=== PATIENT | male | born 1960 | race Caucasian/White ===

== ENCOUNTER → 2016-06-06 | Outpatient (REF) | payer MEDICARE, MEDICAID | LOC: M SFHCPLAZ 15:36 | PROVIDERS: ATTEND Family Medicine | DX: R35.0 Frequency of micturition (principal) | CPT/HCPCS: G0103; G0463 ==

== ENCOUNTER 2016-07-24 12:10 | Emergency (ER) | payer MEDICARE, MEDICAID ==
--- NOTE | 2016-07-24 14:16 | EDDOCDS ---
Physician Documentation [facility] Name: Donn Yusuf Age: 55 yrs Sex: Male : 1960 Arrival Date: 07/24/2016 Time: 12:10 Bed PR Private MD: Aayush Lane M. Disposition: 07/24/16 14:04 Discharged to Home/Self Care. Impression: Acute maxillary sinusitis. - Condition is Stable. - Discharge Instructions: Sinusitis, Adult. - Prescriptions for Augmentin 875- 125 mg Oral Tablet - take 1 tablet by ORAL route every 12 hours for 10 days; 20 tablet. Ibuprofen 800 mg Oral Tablet - take 1 tablet by ORAL route every 8 hours As needed take with food; 30 tablet. Mucinex 600 mg - take 1 tablet by ORAL route 2 times per day; 30 tablet. benzonatate 200 mg Oral Capsule - take 1 capsule by ORAL route 3 times per day As needed; 30 capsule. Fluticasone 50 mcg/actuation Nasal [place], Suspension - inhale 1 spray by INTRANASAL route 2 times per day; 1 bottle. - Medication Reconciliation, Local Pharmacy Hours form. - Follow up: Aayush Lane; When: 4 - 5 days; Reason: Recheck today's complaints. Follow up: Emergency Department; When: As needed; Reason: Fever > 102F, Trouble breathing, Worsening of conditions. - Problem is new. - Symptoms are unchanged. Historical: - Allergies: no known allergies; - Home Meds: 1. Ambien 10 mg Oral tab 1 tab once daily 2. diazepam 10 mg Oral tab prn 3. trazodone 300 mg Oral tab HS - PMHx: Hypertension; Anxiety; - PSHx: Cholecystectomy; - Social history: Smoking status: Patient states was never smoker of tobacco. No barriers to communication noted, The patient speaks fluent Macedonian, Speaks appropriately for age. - Family history: Not pertinent. - : The pt / caregiver states he / she is not on anticoagulants. Home medication list is obtained from the patient, [employer] import data. - Exposure Risk Screening:: None identified. Vital Signs: 07/24 12:11 BP 179 / 94; Pulse 80; Resp 17; Temp 99.4(O); Pulse Ox 98% on R/A; Weight 120.2 kg / lr2 265 lbs (R); Height 6 ft. 1 in. (185.42 cm) (R); Pain 9/10; 14:14 BP 148 / 84; Pulse 74; Resp 20; Temp 98.4(T); Pulse Ox 94% on R/A; Pain 0/10; dsf 12:11 Body Mass Index 34.96 (120.20 kg, 185.42 cm) lr2 MDM: 12:55 Strep Screen, Nursing ordered. ar2 12:55 Obtain sample by nasopharyngeal swab ordered. ar2 12:56 -Influenza A&B Rapid Antigen - Nose Ordered. EDMS 12:56 Chest, 2 View (pa\E\lat) Ordered. EDMS 13:01 Financial registration complete. lg 13:07 GATS (NEGATIVE STREP SCREEN) Ordered. EDMS 13:41 [facility] Payment Agreement was scanned into [employer] and attached to record. lg 13:54 -Influenza A&B Rapid Antigen - Nose Reviewed. ar2 Signatures: Dispatcher [employer] EDMS Ezra Solorzano, Delmar Reg lg Jacinto Macias, ARNIEC PA-C ar2 Angela GaitanRN RN Marjorie PhillipsRN RN africa The chart was reviewed and I authenticate all verbal orders and agree with the evaluation and treatment provided.Attachments: 13:41 [facility] Payment Agreement lg MTDD
--- NOTE | 2016-07-24 14:16 | EDDOCDS ---
Nurse's Notes [facility] Name: Donn Yusuf Age: 55 yrs Sex: Male : 1960 Arrival Date: 07/24/2016 Time: 12:10 Bed PR Private MD: Aayush Lane M. Diagnosis: Acute maxillary sinusitis Presentation: 07/24 12:26 Presenting complaint: Patient states: "I am sick." Reports cold symptoms x 6 weeks. ead Reports worsening of symptoms 5 days ago with body aches. Adult Sepsis Screening: The patient does not have new or worsening altered mentation. Patient's respiratory rate is less than 22. Systolic blood pressure is greater than 100. Patient has a qSOFA score of 0- Negative Sepsis Screen. Suicide/Homicide risk assessment- the patient denies having any suicidal and/or homicidal ideations and does not present with any other emotional, behavioral or mental health complaints. Status: Patient is not a convention services manager or dependent. Transition of care: patient was not received from another setting of care. 12:26 Acuity: KATHRYN Level 4 ead 12:26 Method Of Arrival: Walkin/Carried/Asstd ead Triage Assessment: 12:28 General: Appears in no apparent distress, well nourished, well groomed, Behavior is ead appropriate for age, cooperative. Pain: Location: face and left ear Pain currently is 10 out of 10 on a pain scale. HIV screening NA for this visit Offered previously. Neurological: Level of Consciousness is awake, alert, obeys commands, Oriented to person, place, time. EENT: Reports pain in left ear, mouth, chin and left jaw. Respiratory: Airway is patent Respiratory effort is even, unlabored, Reports cough that is productive. Derm: Skin is pink, warm & dry. Musculoskeletal: Reports all over body aches. Historical: - Allergies: no known allergies; - Home Meds: 1. Ambien 10 mg Oral tab 1 tab once daily 2. diazepam 10 mg Oral tab prn 3. trazodone 300 mg Oral tab HS - PMHx: Hypertension; Anxiety; - PSHx: Cholecystectomy; - Social history: Smoking status: Patient states was never smoker of tobacco. No barriers to communication noted, The patient speaks fluent Slovak, Speaks appropriately for age. - Family history: Not pertinent. - : The pt / caregiver states he / she is not on anticoagulants. Home medication list is obtained from the patient, [employer] import data. - Exposure Risk Screening:: None identified. Screenin:14 Screening information is obtained from the patient. Fall risk: No risks identified. dsf Assistance ADL's: requires no assistance with activities of daily living. Abuse/DV Screen: The patient / caregiver reports he/she is: not in a situation that causes fear, pain or injury. Nutritional screening: No deficits noted. Advance Directives: Currently, there is no health care proxy. home support is adequate. Assessment: 14:14 Adult Sepsis Screening: The patient does not have new or worsening altered mentation. dsf Patient's respiratory rate is less than 22. Systolic blood pressure is greater than 100. Patient has a qSOFA score of 0- Negative Sepsis Screen. General: Appears in no apparent distress, Behavior is appropriate for age, cooperative. Neurological: Level of Consciousness is awake, alert. Cardiovascular: Capillary refill < 3 seconds. Respiratory: Airway is patent Respiratory effort is even, unlabored, Respiratory pattern is regular, symmetrical. Derm: Skin is pink, warm & dry. Vital Signs: 12:11 BP 179 / 94; Pulse 80; Resp 17; Temp 99.4(O); Pulse Ox 98% on R/A; Weight 120.2 kg (R); lr2 Height 6 ft. 1 in. (185.42 cm) (R); Pain 9/10; 14:14 BP 148 / 84; Pulse 74; Resp 20; Temp 98.4(T); Pulse Ox 94% on R/A; Pain 0/10; dsf 12:11 Body Mass Index 34.96 (120.20 kg, 185.42 cm) lr2 Vitals: 12:11 Log In Time: July 24, 2016 at 12:10. lr2 13:06 Strep Screen is obtained and tested: Negative, a GATSNEG culture is ordered in [facility] and sent. ED Course: 12:11 Patient visited by Viri Elliott. lr2 12:11 Patient moved to Waiting lr2 12:[address] is Private Physician. lr2 12:15 Patient moved to Pre RCE lr2 12:27 Triage Initiated ead 12:32 Patient moved to Triage 1 ar3 12:48 Jacinto Macias PA-C [facility]. ar2 12:48 Leonardo Reid MD is Attending Physician. ar2 12:48 Patient visited by Jacinto Macias PA-C. ar2 12:59 -Influenza A&B Rapid Antigen - Nose Sent. ar3 13:06 Patient moved to TR1 dsf 13:41 [facility] Payment Agreement was scanned into [email or web address] and attached to record. lg 13:55 Patient moved to PR1 / 25 dsf 14:[address] is Referral Physician. ar2 14:14 The patient / caregiver is instructed regarding the plan of care and ED course. dsf 14:14 No IV's were initiated during this patient's visit. No procedures done that require dsf assistance. Order Results: Lab Order: -Influenza A&B Rapid Antigen - Nose; SPEC'M 07/24/16 12:59 Test: INFLUENZA A RAPID SCR by ICA; Value: INFLUENZA A RESULTS NEGATIVE; Status: F Test: INFLUENZA A RAPID SCR by ICA; Value: Comments:; Status: F Test: INFLUENZA B RAPID SCR by ICA; Value: INFLUENZA B RESULTS NEGATIVE; Status: F Test Note: ; The Influenza test is a direct rapid immunoassay for the qualitative detection of Influenza viral antigen. Cell culture (Viral Culture) testing should be considered to confirm NEGATIVE results and to assist in detecting other viruses that can provide similar clinical symptoms. Please contact the lab within 24 hours ([phone]) if confirmatory testing is desired. Outcome: 14:04 Discharge ordered by Provider. ar2 14:14 Discharge Assessment: Patient awake, alert and oriented x 3. No cognitive and/or dsf functional deficits noted. Patient verbalized understanding of disposition instructions. patient administered narcotics - no. The following High Risk Discharge criteria are identified: None. Discharged to home ambulatory. Condition: stable. Discharge instructions given to patient, Instructed on discharge instructions, follow up and referral plans. medication usage, Demonstrated understanding of instructions, medications, Pt was receptive of discharge instructions/ teaching. Prescriptions given X 5. No special radiology studies were completed. Property sent home with patient. 14:16 Patient left the ED. dsf Signatures: Ezra Solorzano, Reg Reg lg Jacinto Macias PA-C PA-C ar2 Desiree Thompson, TITLE INSURANCE AGENT TITLE INSURANCE AGENT ar3 Angela Gaitan RN RN dsf Marjorie Ndiaye RN RN Viri Webber lr2 ELLAD
--- NOTE | 2016-07-24 14:57 | REP ---
TWO-VIEW CHEST: Two views of the chest are performed and compared to prior study 09/10/2015. There is somewhat poor ventilation with mild bibasilar fibroatelectatic change. I see no acute infiltrate or pulmonary edema. The heart is normal in size. Mediastinal silhouette is unremarkable. Visualized osseous structures are unremarkable. IMPRESSION: Mild bibasilar fibroatelectatic change without evidence of acute infiltrate. Signed by Donn Martinez MD 07/24/2016 05:00 P
[2016-07-25] MEDS ORDERED: METAL LOCK LOOP XX ONE (01:37)
[2016-07-25] MEDS ORDERED: CETACAINE SPRAY 20GM (FLOOR STOCK) As Ordered ONE (02:18)
--- NOTE | 2016-07-26 15:17 | EDDOCDS ---
Physician Documentation [facility] Name: Donn Yusuf Age: 55 yrs Sex: Male : 1960 Arrival Date: 07/24/2016 Time: 12:10 Bed PR Private MD: Aayush Lane M. Disposition: 07/24/16 14:04 Discharged to Home/Self Care. Impression: Acute maxillary sinusitis. - Condition is Stable. - Discharge Instructions: Sinusitis, Adult. - Prescriptions for Augmentin 875- 125 mg Oral Tablet - take 1 tablet by ORAL route every 12 hours for 10 days; 20 tablet. Ibuprofen 800 mg Oral Tablet - take 1 tablet by ORAL route every 8 hours As needed take with food; 30 tablet. Mucinex 600 mg - take 1 tablet by ORAL route 2 times per day; 30 tablet. benzonatate 200 mg Oral Capsule - take 1 capsule by ORAL route 3 times per day As needed; 30 capsule. Fluticasone 50 mcg/actuation Nasal [place], Suspension - inhale 1 spray by INTRANASAL route 2 times per day; 1 bottle. - Medication Reconciliation, Local Pharmacy Hours form. - Follow up: Aayush Lane; When: 4 - 5 days; Reason: Recheck today's complaints. Follow up: Emergency Department; When: As needed; Reason: Fever > 102F, Trouble breathing, Worsening of conditions. - Problem is new. - Symptoms are unchanged. Historical: - Allergies: no known allergies; - Home Meds: 1. Ambien 10 mg Oral tab 1 tab once daily 2. diazepam 10 mg Oral tab prn 3. trazodone 300 mg Oral tab HS - PMHx: Hypertension; Anxiety; - PSHx: Cholecystectomy; - Social history: Smoking status: Patient states was never smoker of tobacco. No barriers to communication noted, The patient speaks fluent Argentine, Speaks appropriately for age. - Family history: Not pertinent. - : The pt / caregiver states he / she is not on anticoagulants. Home medication list is obtained from the patient, [employer] import data. - Exposure Risk Screening:: None identified. Vital Signs: 07/24 12:11 BP 179 / 94; Pulse 80; Resp 17; Temp 99.4(O); Pulse Ox 98% on R/A; Weight 120.2 kg / lr2 265 lbs (R); Height 6 ft. 1 in. (185.42 cm) (R); Pain 9/10; 14:14 BP 148 / 84; Pulse 74; Resp 20; Temp 98.4(T); Pulse Ox 94% on R/A; Pain 0/10; dsf 12:11 Body Mass Index 34.96 (120.20 kg, 185.42 cm) lr2 MDM: 12:55 Strep Screen, Nursing ordered. ar2 12:55 Obtain sample by nasopharyngeal swab ordered. ar2 12:56 -Influenza A&B Rapid Antigen - Nose Ordered. EDMS 12:56 Chest, 2 View (pa\E\lat) Ordered. EDMS 13:01 Financial registration complete. lg 13:07 GATS (NEGATIVE STREP SCREEN) Ordered. EDMS 13:41 [facility] Payment Agreement was scanned into [employer] and attached to record. lg 13:54 -Influenza A&B Rapid Antigen - Nose Reviewed. ar2 Signatures: Dispatcher [employer] EDMS Ezra Solorzano, Delmar Reg lg Jacinto Macias, ARNIEC PA-C ar2 Angela GaitanRN RN Marjorie PhillipsRN RN africa The chart was reviewed and I authenticate all verbal orders and agree with the evaluation and treatment provided.Attachments: 13:41 [facility] Payment Agreement lg Chart Complete MTDD
--- NOTE | 2016-07-26 15:18 | EDDOCDS ---
Nurse's Notes [facility] Name: Donn Yusuf Age: 55 yrs Sex: Male : 1960 Arrival Date: 07/24/2016 Time: 12:10 Bed PR Private MD: Aayush Lane M. Diagnosis: Acute maxillary sinusitis Presentation: 07/24 12:26 Presenting complaint: Patient states: "I am sick." Reports cold symptoms x 6 weeks. ead Reports worsening of symptoms 5 days ago with body aches. Adult Sepsis Screening: The patient does not have new or worsening altered mentation. Patient's respiratory rate is less than 22. Systolic blood pressure is greater than 100. Patient has a qSOFA score of 0- Negative Sepsis Screen. Suicide/Homicide risk assessment- the patient denies having any suicidal and/or homicidal ideations and does not present with any other emotional, behavioral or mental health complaints. Status: Patient is not a prepared foods service team member or dependent. Transition of care: patient was not received from another setting of care. 12:26 Acuity: KATHRYN Level 4 ead 12:26 Method Of Arrival: Walkin/Carried/Asstd ead Triage Assessment: 12:28 General: Appears in no apparent distress, well nourished, well groomed, Behavior is ead appropriate for age, cooperative. Pain: Location: face and left ear Pain currently is 10 out of 10 on a pain scale. HIV screening NA for this visit Offered previously. Neurological: Level of Consciousness is awake, alert, obeys commands, Oriented to person, place, time. EENT: Reports pain in left ear, mouth, chin and left jaw. Respiratory: Airway is patent Respiratory effort is even, unlabored, Reports cough that is productive. Derm: Skin is pink, warm & dry. Musculoskeletal: Reports all over body aches. Historical: - Allergies: no known allergies; - Home Meds: 1. Ambien 10 mg Oral tab 1 tab once daily 2. diazepam 10 mg Oral tab prn 3. trazodone 300 mg Oral tab HS - PMHx: Hypertension; Anxiety; - PSHx: Cholecystectomy; - Social history: Smoking status: Patient states was never smoker of tobacco. No barriers to communication noted, The patient speaks fluent Pashto, Speaks appropriately for age. - Family history: Not pertinent. - : The pt / caregiver states he / she is not on anticoagulants. Home medication list is obtained from the patient, [employer] import data. - Exposure Risk Screening:: None identified. Screenin:14 Screening information is obtained from the patient. Fall risk: No risks identified. dsf Assistance ADL's: requires no assistance with activities of daily living. Abuse/DV Screen: The patient / caregiver reports he/she is: not in a situation that causes fear, pain or injury. Nutritional screening: No deficits noted. Advance Directives: Currently, there is no health care proxy. home support is adequate. Assessment: 14:14 Adult Sepsis Screening: The patient does not have new or worsening altered mentation. dsf Patient's respiratory rate is less than 22. Systolic blood pressure is greater than 100. Patient has a qSOFA score of 0- Negative Sepsis Screen. General: Appears in no apparent distress, Behavior is appropriate for age, cooperative. Neurological: Level of Consciousness is awake, alert. Cardiovascular: Capillary refill < 3 seconds. Respiratory: Airway is patent Respiratory effort is even, unlabored, Respiratory pattern is regular, symmetrical. Derm: Skin is pink, warm & dry. Vital Signs: 12:11 BP 179 / 94; Pulse 80; Resp 17; Temp 99.4(O); Pulse Ox 98% on R/A; Weight 120.2 kg (R); lr2 Height 6 ft. 1 in. (185.42 cm) (R); Pain 9/10; 14:14 BP 148 / 84; Pulse 74; Resp 20; Temp 98.4(T); Pulse Ox 94% on R/A; Pain 0/10; dsf 12:11 Body Mass Index 34.96 (120.20 kg, 185.42 cm) lr2 Vitals: 12:11 Log In Time: July 24, 2016 at 12:10. lr2 13:06 Strep Screen is obtained and tested: Negative, a GATSNEG culture is ordered in [facility] and sent. ED Course: 12:11 Patient visited by Viri Elliott. lr2 12:11 Patient moved to Waiting lr2 12:[address] is Private Physician. lr2 12:15 Patient moved to Pre RCE lr2 12:27 Triage Initiated ead 12:32 Patient moved to Triage 1 ar3 12:48 [facility]into Macias [facility]. ar2 12:48 Leonardo Reid MD is Attending Physician. ar2 12:48 Patient visited by Jacinto Macias PA-C. ar2 12:59 -Influenza A&B Rapid Antigen - Nose Sent. ar3 13:06 Patient moved to TR1 dsf 13:41 [facility] Payment Agreement was scanned into [employer] and attached to record. lg 13:55 Patient moved to PR1 / 25 dsf 14:[address] is Referral Physician. ar2 14:14 The patient / caregiver is instructed regarding the plan of care and ED course. dsf 14:14 No IV's were initiated during this patient's visit. No procedures done that require dsf assistance. 15:03 Chest, 2 View (pa\\E\\lat) Returned. EDMS Order Results: Lab Order: -Influenza A&B Rapid Antigen - Nose; SPEC'M 07/24/16 12:59 Test: INFLUENZA A RAPID SCR by ICA; Value: INFLUENZA A RESULTS NEGATIVE; Status: F Test: INFLUENZA A RAPID SCR by ICA; Value: Comments:; Status: F Test: INFLUENZA B RAPID SCR by ICA; Value: INFLUENZA B RESULTS NEGATIVE; Status: F Test Note: ; The Influenza test is a direct rapid immunoassay for the qualitative detection of Influenza viral antigen. Cell culture (Viral Culture) testing should be considered to confirm NEGATIVE results and to assist in detecting other viruses that can provide similar clinical symptoms. Please contact the lab within 24 hours ([phone]) if confirmatory testing is desired. Lab Order: GATS (NEGATIVE STREP SCREEN); SPEC'M 07/24/16 12:59 Test: GATS CULTURE (NEG STREP SCR); Value: GATS RESULT NEGATIVE FOR STREP PYOGENES (GROUP A); Status: F Test: GATS CULTURE (NEG STREP SCR); Value: <EXTERNAL COMMENT eCWMed> FULL REPORT IN LAB NOTES (eCW and Medent).; Status: F Radiology Order: Chest, 2 View (pa\\E\\lat) Test: Chest, 2 View (pa\\E\\lat) REASON FOR EXAMINATION: cough, fevers; TWO-VIEW CHEST:; ; Two views of the chest are performed and compared to prior study 09/10/2015.; ; There is somewhat poor ventilation with mild bibasilar fibroatelectatic change. I; see no acute infiltrate or pulmonary edema. The heart is normal in size.; Mediastinal silhouette is unremarkable. Visualized osseous structures are; unremarkable.; ; IMPRESSION:; ; Mild bibasilar fibroatelectatic change without evidence of acute infiltrate.; ; ; Signed by; Donn Martinez MD 07/24/2016 05:00 P; Outcome: 14:04 Discharge ordered by Provider. ar2 14:14 Discharge Assessment: Patient awake, alert and oriented x 3. No cognitive and/or dsf functional deficits noted. Patient verbalized understanding of disposition instructions. patient administered narcotics - no. The following High Risk Discharge criteria are identified: None. Discharged to home ambulatory. Condition: stable. Discharge instructions given to patient, Instructed on discharge instructions, follow up and referral plans. medication usage, Demonstrated understanding of instructions, medications, Pt was receptive of discharge instructions/ teaching. Prescriptions given X 5. No special radiology studies were completed. Property sent home with patient. 14:16 Patient left the ED. dsf Signatures: Dispatcher [employer] EDMS Ezra Solorzano, Delmar Reg lg Jacinto Macias PA-C PAShira ar2 Desiree Thompson, TUBE MOUNTER TUBE MOUNTER ar3 Angela Gaitan RN RN dsf Marjorie Ndiaye,RN RN Viri Webber lr2 Chart Complete MTDD
--- NOTE | 2016-07-26 15:18 | EDDOCDS ---
Physician Documentation [facility] Name: Donn Yusuf Age: 55 yrs Sex: Male : 1960 Arrival Date: 07/24/2016 Time: 12:10 Bed PR Private MD: Aayush Lane M. Disposition: 07/24/16 14:04 Discharged to Home/Self Care. Impression: Acute maxillary sinusitis. - Condition is Stable. - Discharge Instructions: Sinusitis, Adult. - Prescriptions for Augmentin 875- 125 mg Oral Tablet - take 1 tablet by ORAL route every 12 hours for 10 days; 20 tablet. Ibuprofen 800 mg Oral Tablet - take 1 tablet by ORAL route every 8 hours As needed take with food; 30 tablet. Mucinex 600 mg - take 1 tablet by ORAL route 2 times per day; 30 tablet. benzonatate 200 mg Oral Capsule - take 1 capsule by ORAL route 3 times per day As needed; 30 capsule. Fluticasone 50 mcg/actuation Nasal [place], Suspension - inhale 1 spray by INTRANASAL route 2 times per day; 1 bottle. - Medication Reconciliation, Local Pharmacy Hours form. - Follow up: Aayush Lane; When: 4 - 5 days; Reason: Recheck today's complaints. Follow up: Emergency Department; When: As needed; Reason: Fever > 102F, Trouble breathing, Worsening of conditions. - Problem is new. - Symptoms are unchanged. Historical: - Allergies: no known allergies; - Home Meds: 1. Ambien 10 mg Oral tab 1 tab once daily 2. diazepam 10 mg Oral tab prn 3. trazodone 300 mg Oral tab HS - PMHx: Hypertension; Anxiety; - PSHx: Cholecystectomy; - Social history: Smoking status: Patient states was never smoker of tobacco. No barriers to communication noted, The patient speaks fluent Maldivian, Speaks appropriately for age. - Family history: Not pertinent. - : The pt / caregiver states he / she is not on anticoagulants. Home medication list is obtained from the patient, [employer] import data. - Exposure Risk Screening:: None identified. Vital Signs: 07/24 12:11 BP 179 / 94; Pulse 80; Resp 17; Temp 99.4(O); Pulse Ox 98% on R/A; Weight 120.2 kg / lr2 265 lbs (R); Height 6 ft. 1 in. (185.42 cm) (R); Pain 9/10; 14:14 BP 148 / 84; Pulse 74; Resp 20; Temp 98.4(T); Pulse Ox 94% on R/A; Pain 0/10; dsf 12:11 Body Mass Index 34.96 (120.20 kg, 185.42 cm) lr2 MDM: 12:55 Strep Screen, Nursing ordered. ar2 12:55 Obtain sample by nasopharyngeal swab ordered. ar2 12:56 -Influenza A&B Rapid Antigen - Nose Ordered. EDMS 12:56 Chest, 2 View (pa\E\lat) Ordered. EDMS 13:01 Financial registration complete. lg 13:07 GATS (NEGATIVE STREP SCREEN) Ordered. EDMS 13:41 ON LICENSE OF [facility] Payment Agreement was scanned into [employer] and attached to record. lg 13:54 -Influenza A&B Rapid Antigen - Nose Reviewed. ar2 Signatures: Dispatcher [employer] EDMS Ezra Solorzano, Delmar Reg lg Jacinto Macias, ARNIEC PA-C ar2 Angela GaitanRN RN Marjorie PhillipsRN RN africa The chart was reviewed and I authenticate all verbal orders and agree with the evaluation and treatment provided.Attachments: 13:41 ON LICENSE OF [facility] Payment Agreement lg Chart Complete MTDD
== END 2016-07-24 14:16 | disposition home or self-care (01) ==
LOC: M ED 12:10
DX: J01.00 Acute maxillary sinusitis, unspecified (principal); F41.9 Anxiety disorder, unspecified; I10 Essential (primary) hypertension; Z79.899 Other long term (current) drug therapy

== ENCOUNTER → 2017-01-22 | Outpatient (CLI) | payer MEDICARE, MEDICAID ==
--- NOTE | 2017-01-22 10:43 | REP ---
MR LUMBAR SPINE WITHOUT CONTRAST: HISTORY: Leg weakness. COMPARISON: 02/13/2008. Decreased signal intensity on T2-weighted images is present in the lumbar intervertebral discs. The discs are decreased in height. These findings are consistent with disc degeneration. A diffuse disc bulge is present at the L1-2 level. There is minimal compression of the thecal sac. There is hypertrophy of the posterior articulating facets. The L1 nerves exit the neural foramina without compression. A diffuse disc bulge is present at the L2-3 level. There is hypertrophy of the posterior articulating facets. These findings produce minimal central canal stenosis. The L2 nerves exit the neural foramina without compression. A diffuse disc bulge and small right paracentral disc protrusion are present at the L3-4 level. There is hypertrophy of the ligamenta flava and posterior articulating facets. These findings produce moderate central canal stenosis. The L3 nerves exit the neural foramina without compression. A diffuse disc bulge with associated osteophyte formation is present at the L4-5 level. There is minimal compression of the thecal sac. The L4 nerves exit the neural foramina without compression. A diffuse disc bulge is present at the L5-S1. There is no thecal sac compression. There is hypertrophy of the posterior articulating facets. The L5 nerves exit the neural foramina without compression. The conus medullaris is normal in appearance terminating at the level of the T12-L1 intervertebral disc. Increased signal intensity on T2-weighted images is present in the endplates of the L4 on L5 vertebral bodies. This represents degenerative change. IMPRESSION: 1. Diffuse disc bulge at the L1-2 level with minimal thecal sac compression. This is a new finding. 2. Minimal central canal stenosis at the L2-3 level secondary to disc bulge and facet hypertrophy. This is a new finding. 3. Moderate central canal stenosis at the L3-4 level secondary to disc bulge, disc protrusion, ligamentous and facet hypertrophy. The canal stenosis is a new finding. 4. Diffuse disc bulge with associated osteophyte formation at the L4-5 level with minimal thecal sac compression. 5. Diffuse disc bulge at the L5-S1 level without thecal sac or no nerve compression. There is no other significant change. Signed by Thanh Reardon MD 01/22/2017 10:54 A
== END ==
LOC: M PLARAD 08:58
PROVIDERS: ATTEND Family Medicine
DX: M99.73 Connective tissue and disc stenosis of intervertebral foramina of lumbar region (principal); M51.06 Intervertebral disc disorders with myelopathy, lumbar region; M51.27 Other intervertebral disc displacement, lumbosacral region; M25.78 Osteophyte, vertebrae

== ENCOUNTER → 2017-04-25 | Outpatient (CLI) | payer MEDICARE, MEDICAID ==
--- NOTE | 2017-04-28 13:14 | SLEEPCENT ---
DATE OF PROCEDURE: 04/25/2017 ORDERED BY: Kanwal Falk Nocturnal polysomnography was performed for evaluation of sleep physiology in this patient with complaints of excessive somnolence, comorbidities of bipolar disease and hypertension. 8 hours and 8 minutes of data were reviewed. There were 440 minutes of sleep identified. Sleep latency was normal at 10 minutes. Rapid eye movement (REM) latency was mildly prolonged at 103 minutes. Sleep architecture was good with 3 REM periods appreciated. Overall sleep efficiency was 91.8%. The electrocardiogram showed a sinus rhythm with an average heart rate of 52 beats per minute, rate ranged 40-76. EEG showed coarsening in background in the non-REM stages; otherwise normal waveforms for awake and sleep. There were 35 respiratory events identified of 10 seconds in duration or greater for an apnea-hypopnea index of 4.8. The events were hypopneic, not associated with sleep position but more frequent in stage REM. Snoring was noted over the course of the study. Arousals from respiratory events in total occurred only once per hour. There were occasional oxygen desaturations to 87%. IMPRESSION: Normal nocturnal polysomnography with snoring. RECOMMENDATION: The frequency of respiratory events was at the upper limits of normal, and therefore, interventions to optimize upper airway tone and affect optimal weight control would be prudent. Should the patient's symptoms persist or worsen, re-testing has been shown more sensitive to identify mild obstructive sleep apnea disease. Copy To: Dr. Lane
== END ==
LOC: M SLEEP 19:37
PROVIDERS: ATTEND Nurse Practitioner Adult Health
DX: G47.30 Sleep apnea, unspecified (principal)

== ENCOUNTER 2017-08-16 23:34 | Emergency (ER) | payer MEDICARE, MEDICAID ==
[2017-08-17] MEDS: ONDANSETRON 4MG/2ML VIAL (J2405) IV (00:28)
[2017-08-17] MEDS: MORPHINE 4 MG/ML 1ML VIAL (J2270) IV ×2 (00:29→01:29)
[2017-08-17 01:23] LABS: BASO % 0.5 % (0.0-1.0); EOS % 0.3 % (0.0-3.0); HEMATOCRIT 43.8 % (42.0-52.0); IMMATURE GRANULOCYTE % 0.4 % (0-3.0); LYMPH # 0.7 10^3/uL (1.5-4.5); LYMPH % 9.8 % (24.0-44.0); MEAN CORPUSCULAR HEMOGLOBIN 30.4 pg (27.0-33.0); MEAN CORPUSCULAR HGB CONC 34.2 g/dl (32.0-36.5); MEAN CORPUSCULAR VOLUME 88.8 fl (80.0-96.0); MONO # 0.6 10^3/uL (0.0-0.8); MONO % 8.3 % (0.0-5.0); NEUTROPHILS % 80.7 % (36.0-66.0); PLATELET COUNT, AUTOMATED 184 10^3/uL (150-450); RED BLOOD COUNT 4.93 10^6/uL (4.30-6.10); RED CELL DISTRIBUTION WIDTH 13.2 % (11.5-14.5); WHITE BLOOD COUNT 7.5 10^3/uL (4.0-10.0)
[2017-08-17 01:47] LABS: ANION GAP 10 MEQ/L (8-16); BLOOD UREA NITROGEN 7 MG/DL (7-18); CALCIUM LEVEL 8.4 MG/DL (8.5-10.1); CARBON DIOXIDE LEVEL 28 MEQ/L (21-32); CHLORIDE LEVEL 102 MEQ/L (98-107); CK-MB VALUE MASS < 1.0 NG/ML (<3.6); CPK CREATINE PHOSPHOKINASE 78 U/L (39-308); CREATININE FOR GFR 0.85 MG/DL (0.70-1.30); GLOMERULAR FILTRATION RATE > 60.0 (>56); GLUCOSE, FASTING 100 MG/DL (70-100); MB/CK RELATIVE INDEX 1.28 (< OR =4); POTASSIUM SERUM 3.5 MEQ/L (3.5-5.1); SODIUM LEVEL 140 MEQ/L (136-145); TROPONIN I < 0.02 NG/ML (< 0.10)
[2017-08-17] MEDS: SIMETHICONE 80 MG CHEW TAB PO (02:59)
[2017-08-17] MEDS: predniSONE 20 MG TAB PO (02:59)
== END 2017-08-17 03:13 | disposition home or self-care (01) ==
LOC: M ED 23:34
DX: M54.2 Cervicalgia (principal); M47.22 Other spondylosis with radiculopathy, cervical region; R07.9 Chest pain, unspecified; I10 Essential (primary) hypertension; Z98.84 Bariatric surgery status
CPT/HCPCS: J2270

== ENCOUNTER 2017-08-21 14:29 | Emergency (ER) | payer MEDICARE, MEDICAID ==
[2017-08-21] MEDS: NS 1,000 ML IV (15:44)
[2017-08-21] MEDS: MORPHINE 4 MG/ML 1ML VIAL (J2270) IV (15:44)
[2017-08-21] MEDS: ONDANSETRON 4MG/2ML VIAL (J2405) IV (15:44)
[2017-08-21] MEDS ORDERED: ISOVUE-370 76% 100ML VIAL (Q9967) As Ordered (16:02)
[2017-08-21 16:36] LABS: BASO % 0.4 % (0.0-1.0); EOS # 0.1 10^3/uL (0.0-0.50); EOS % 1.2 % (0.0-3.0); HEMATOCRIT 45.4 % (42.0-52.0); HEMOGLOBIN 15.6 g/dl (14.0-18.0); IMMATURE GRANULOCYTE % 0.5 % (0-3.0); LYMPH # 1.3 10^3/uL (1.5-4.5); LYMPH % 12.5 % (24.0-44.0); MEAN CORPUSCULAR HEMOGLOBIN 30.6 pg (27.0-33.0); MEAN CORPUSCULAR HGB CONC 34.4 g/dl (32.0-36.5); MONO # 0.8 10^3/uL (0.0-0.8); MONO % 7.2 % (0.0-5.0); NEUTROPHILS # 8.1 10^3/uL (1.8-7.7); NEUTROPHILS % 78.2 % (36.0-66.0); RED CELL DISTRIBUTION WIDTH 13.3 % (11.5-14.5); WHITE BLOOD COUNT 10.4 10^3/uL (4.0-10.0)
[2017-08-21 17:02] LABS: ALBUMIN 3.3 GM/DL (3.2-5.2); ALBUMIN/GLOBULIN RATIO 0.75 (1.00-1.93); ALKALINE PHOSPHATASE 196 U/L (45-117); ALT/SGPT 32 U/L (12-78); ANION GAP 13 MEQ/L (8-16); AST/SGOT 21 U/L (7-37); BILIRUBIN,DIRECT 0.8 MG/DL (0.0-0.2); BILIRUBIN,TOTAL 1.3 MG/DL (0.2-1.0); BLOOD UREA NITROGEN 8 MG/DL (7-18); CARBON DIOXIDE LEVEL 24 MEQ/L (21-32); CHLORIDE LEVEL 104 MEQ/L (98-107); CPK CREATINE PHOSPHOKINASE 68 U/L (39-308); CREATININE FOR GFR 0.79 MG/DL (0.70-1.30); GLOMERULAR FILTRATION RATE > 60.0 (>56); GLUCOSE, FASTING 68 MG/DL (70-100); LIPASE 67 U/L (73-393); POTASSIUM SERUM 3.8 MEQ/L (3.5-5.1); SODIUM LEVEL 141 MEQ/L (136-145); TOTAL PROTEIN 7.7 GM/DL (6.4-8.2); TROPONIN I < 0.02 NG/ML (< 0.10)
[2017-08-21 17:08] LABS: CK-MB VALUE MASS < 1.0 NG/ML (<3.6); MB/CK RELATIVE INDEX 1.47 (< OR =4); NT-PRO BNP 37 PG/ML (<125)
[2017-08-21 17:14] LABS: PLATELET COUNT, AUTOMATED 239 10^3/uL (150-450); POS COUNT POS FLAG
[2017-08-21 17:46] LABS: INR 1.11; PROTHROMBIN TIME 14.5 SECONDS (12.4-14.5)
== END 2017-08-21 19:21 | disposition short-term general hospital (02) ==
LOC: M ED 14:29
DX: R07.89 Other chest pain (principal); R10.9 Unspecified abdominal pain; R93.2 Abnormal findings on diagnostic imaging of liver and biliary tract; I10 Essential (primary) hypertension; N40.0 Benign prostatic hyperplasia without lower urinary tract symptoms; M51.9 Unspecified thoracic, thoracolumbar and lumbosacral intervertebral disc disorder; F31.9 Bipolar disorder, unspecified; G47.00 Insomnia, unspecified; F41.0 Panic disorder [episodic paroxysmal anxiety]; R91.8 Other nonspecific abnormal finding of lung field; Z79.899 Other long term (current) drug therapy
CPT/HCPCS: J2270

== ENCOUNTER → 2017-09-20 | Outpatient (REF) | payer MEDICARE, MEDICAID ==
[2017-09-20 12:01] LABS: BASO % 0.4 % (0.0-1.0); EOS # 0.1 10^3/uL (0.0-0.50); EOS % 1.7 % (0.0-3.0); HEMATOCRIT 43.7 % (42.0-52.0); HEMOGLOBIN 14.6 g/dl (13.5-17.5); IMMATURE GRANULOCYTE % 0.4 % (0-3.0); LYMPH # 1.3 10^3/uL (1.5-4.5); LYMPH % 27.1 % (24.0-44.0); MEAN CORPUSCULAR HEMOGLOBIN 30.3 pg (27.0-33.0); MEAN CORPUSCULAR HGB CONC 33.4 g/dl (32.0-36.5); MEAN CORPUSCULAR VOLUME 90.7 fl (80.0-96.0); MONO # 0.4 10^3/uL (0.0-0.8); MONO % 8.3 % (0.0-5.0); NEUTROPHILS # 2.9 10^3/uL (1.8-7.7); NEUTROPHILS % 62.1 % (36.0-66.0); PLATELET COUNT, AUTOMATED 176 10^3/uL (150-450); RED BLOOD COUNT 4.82 10^6/uL (4.30-6.10); RED CELL DISTRIBUTION WIDTH 14.4 % (11.5-14.5); WHITE BLOOD COUNT 4.7 10^3/uL (4.0-10.0)
[2017-09-20 12:10] LABS: HEMATOCRIT 43.7 % (42.0-52.0)
[2017-09-20 13:01] LABS: TOTAL 25(OH) VITAMIN D 24.5 NG/ML (30.0-100.0); VITAMIN B12 LEVEL 603 PG/ML (247-911)
[2017-09-20 13:11] LABS: ALBUMIN 3.5 GM/DL (3.2-5.2); ALBUMIN/GLOBULIN RATIO 0.88 (1.00-1.93); ALKALINE PHOSPHATASE 121 U/L (45-117); ALT/SGPT 32 U/L (12-78); ANION GAP 7 MEQ/L (8-16); AST/SGOT 27 U/L (7-37); BILIRUBIN,TOTAL 0.8 MG/DL (0.2-1.0); BLOOD UREA NITROGEN 8 MG/DL (7-18); CALCIUM LEVEL 9.2 MG/DL (8.5-10.1); CARBON DIOXIDE LEVEL 28 MEQ/L (21-32); CHLORIDE LEVEL 108 MEQ/L (98-107); CREATININE FOR GFR 0.99 MG/DL (0.70-1.30); FERRITIN 317 NG/ML (26-388); GLOMERULAR FILTRATION RATE > 60.0 (>56); GLUCOSE, FASTING 93 MG/DL (70-100); IRON (FE) 91 UG/DL (65-175); MAGNESIUM LEVEL 2.1 MG/DL (1.8-2.4); PERCENT SATURATION 36.7 % (19.7-50.0); PHOSPHORUS LEVEL 1.6 MG/DL (2.5-4.9); POTASSIUM SERUM 4.8 MEQ/L (3.5-5.1); SODIUM LEVEL 143 MEQ/L (136-145); TOTAL IRON BINDING CAPACITY 248 UG/DL (250-450); TOTAL PROTEIN 7.5 GM/DL (6.4-8.2)
[2017-09-20 13:26] LABS: ESTIMATED AVERAGE GLUCOSE 91 MG/DL (60-110); HEMOGLOBIN A1c 4.8 %
[2017-09-21 14:30] LABS: PRETREATED FOLATE FOR RBCFOL 8.7 NG/ML; RBC FOLATE 418.1 NG/ML (280-791)
[2017-09-25 00:06] LABS: VITAMIN B1 LEVEL WHOLE BLOOD 125.4 nmol/L (66.5-200.0)
== END ==
LOC: M LAB REF 11:45
DX: K91.2 Postsurgical malabsorption, not elsewhere classified (principal); E55.9 Vitamin D deficiency, unspecified; Z98.84 Bariatric surgery status
CPT/HCPCS: 83550

== ENCOUNTER → 2017-10-29 | Outpatient (REF) | payer MEDICARE, MEDICAID ==
[2017-10-29 16:08] LABS: ALBUMIN 3.4 GM/DL (3.2-5.2); ALBUMIN/GLOBULIN RATIO 0.97 (1.00-1.93); ALKALINE PHOSPHATASE 145 U/L (45-117); ALT/SGPT 45 U/L (12-78); AST/SGOT 26 U/L (7-37); BILIRUBIN,DIRECT 0.6 MG/DL (0.0-0.2); BILIRUBIN,TOTAL 1.5 MG/DL (0.2-1.0); TOTAL PROTEIN 6.9 GM/DL (6.4-8.2)
== END ==
LOC: M SFHCPLAZ 13:52
DX: R17 Unspecified jaundice (principal)
CPT/HCPCS: 80076